=== PATIENT | female | born 1990 | race Caucasian/White ===

== ENCOUNTER 2020-07-21 07:53 | Emergency (ER) | payer BC ==
[2020-07-21 08:08] VITALS: BP 143/98; PULSE 70; TEMP 98.7; BMI 23.6
[2020-07-21] MEDS ORDERED: DIPHTH,PERTUSS(ACELL),TET 0.5 ML DISP.SYRIN IM ONE ×2 (08:10→08:26)
[2020-07-21] MEDS ORDERED: IBUPROFEN 600 MG TABLET (FP) PO ONE ×2 (08:25)
[2020-07-21] MEDS ORDERED: LIDOCAINE HCL 2% (50ML VIAL) INF ONE (08:36)
[2020-07-21] MEDS ORDERED: LIDOCAINE HCL 2% (20ML MULTI-DOSE VIAL) ONE (08:37)
== END 2020-07-21 09:22 | disposition home or self-care (01) ==
LOC: FER 07:53
PROC: 3E0234Z Introduction of Serum, Toxoid and Vaccine into Muscle, Percutaneous Approach (ICD-10-PCS; principal; 2020-07-21)
DX: S61.300A Unspecified open wound of right index finger with damage to nail, initial encounter (principal)
CPT/HCPCS: 73140-TC-RT-FY; 90715; 99284-25